=== PATIENT | female | born 1990 | race Caucasian/White ===

== ENCOUNTER 2020-02-05 22:36 | Inpatient (IN) ==
[2020-02-05 23:35] LABS: URINE SOURCE CLEAN CATCH
[2020-02-05 23:38] LABS: BILIRUBIN URINE NEGATIVE (NEGATIVE); BLOOD URINE NEGATIVE (NEGATIVE); COLOR STRAW; GLUCOSE URINE NEGATIVE (NEGATIVE); KETONE URINE NEGATIVE (NEGATIVE); LEUKOCYTES URINE NEGATIVE (NEGATIVE); NITRITE URINE NEGATIVE (NEGATIVE); PH URINE 6.5; PROTEIN URINE NEGATIVE (NEGATIVE); SP GRAVITY URINE 1.008; TURBIDITY URINE CLEAR (CLEAR); UROBILINOGEN URINE NORMAL (NORMAL)
[2020-02-05 23:39] LABS: ACETAMINOPHEN < 1.2 ug/mL (10-30); MAGNESIUM 2.2 mg/dL (1.5-2.7); SALICYLATES < 3.00 mg/dL (3-10); VALPROIC ACID < 2.80 ug/mL (50-100)
--- NOTE | 2020-02-05 23:39 | PROVIDER DOCUMENTATION ---
This chart was entered by Tamiko Arriaza Scribe, acting as scribe for Lisa Blanco MD. 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 pt sts she did it "cause I hate my life." pt has had previous suicide attempts w/OD of taking 13 seroquel 2 days ago and cutting her arm many years ago. Pt sts she vom ited most the antifreeze up. Pt requests liver enzymes be checked because she drinks alcohol frequently. pt has gone to rehab previously. Pt lives alone but has supportive family and friends. no psychiatrists, no rx, and no pcp. This episode of drinking or use began:: 1-3 hours ago Severity: reports: moderate Situational problems related to:: reports: N/A Psychiatric Complaints: reports: ingestion, suicidal ideation Associated Symptoms: reports: vomiting Similar Symptoms Previously?: Yes - Overdose Intentional drug overdose?: Yes List substance(s) ingested.: antifreeze and 1 pint of alcohol Suicide Risk Assessment: prior attempt. negative: no social supports Review of Systems - Adult - REVIEW OF SYSTEMS - ADULT Constitutional: reports: no symptoms reported. denies: fever, fatique, night sweats Eyes: reports: no symptoms reported Ears, Nose, Mouth & Throat: reports: no symptoms reported Cardiovascular: reports: no symptoms reported Respiratory: reports: no symptoms reported Gastrointestinal: reports: no symptoms reported Genitourinary: reports: no symptoms reported Musculoskeletal: reports: no symptoms reported Integumentary: reports: no symptoms reported Neurological: reports: no symptoms reported Psychiatric: reports: see HPI, suicidal thoughts, other (OD). denies: anti- depressant use, insomnia Endocrine: reports: no symptoms reported Hematologic/Lymphatic: reports: no symptoms reported Allergic/Immunologic: reports: no symptoms reported All Other Systems: Reviewed and Negative Past History - Adult - PAST MEDICAL HISTORY-ADULT Review of Records: reports: Nursing Assessment Review, Medications Reviewed, Social history reviewed & non-contributory. Major Childhood Illnesses: reports: denies history Cardiovascular: reports: denies history Respiratory: reports: denies history Gastrointestinal: reports: denies history Obstetrical/Gynecological: reports: denies history Genitourinary: reports: denies history Musculoskeletal: reports: denies history Neurological: reports: denies history Psychiatric: reports: anxiety, depression, suicide attempt Endocrine/Immune: reports: denies history Other Conditions: reports: denies history - PRIOR SURGERIES/PROCEDURES Surgical/Procedure History: reports: orthopedic (extremity) (arthroscopy), other - IMMUNIZATION STATUS Childhood Immunizations: See Nurse Assessment Flu Vaccine: See Nurse Assessment - FAMILY HISTORY Family History: reviewed, not pertinent - SOCIAL HISTORY Smoking: cigarettes, other (vapes) Provider spent 3-5 mins advising pt. on dangers of tobacco.: Discussed manners to quit use, and f/u contacts for add'l counseling. Substance Use: alcohol Alcohol Use Frequency: every day Number of drinks per typical drinking period:: 3-4 drinks Physical Exam-General - PHYSICAL EXAM-ADULT Initial Vital Signs Reviewed: Yes - CONSTITUTIONAL General Appearance: alert, no apparent distress, anxious, other (smells like alcohol). negative: lethargic, slow to respond - EYES Eyes: PERRL/EOMI - HEAD, EARS, NOSE, MOUTH & THROAT HENMT: normocephalic/atraumatic, moist mucous membranes - NECK Neck: non-tender, full range of motion, supple, normal inspection - RESPIRATORY Respiratory: chest non-tender, lungs clear, normal breath sounds - CARDIOVASCULAR Cardiovascular: normal peripheral pulses, no edema, no murmur, tachycardia. negative: regular rate, rhythm - GASTROINTESTINAL (ABDOMEN) Abdominal Exam: normal bowel sounds, non tender, soft - MUSCULOSKELETAL Back Exam: normal inspection Extremity: normal range of motion, non-tender, normal inspection, no pedal edema - SKIN Integumentary: normal color, normal turgor, warm/dry, other (large well healed incision parallel down forearm from previous self mutulation. Appears to have been deep, large laceration arppxo 15cm long) - NEUROLOGIC Neurologic: grossly normal, no motor/sensory deficits - PSYCHIATRIC Psych/Mental Status: oriented x 3, depressed affect, other (doesn't understand the severity of her actions.). negative: normal mood/affect, normal thought content, normal thought process, disoriented x 3, anxious Progress - PLAN OF CARE/RESULTS Progress/Plan/Lab Results: Vital Signs - 8 hr 02/05/20 22:55 Temperature 98.3 F Pulse Rate 107 H Respiratory Rate 19 Blood Pressure 109/72 O2 Sat by Pulse Oximetry 97 Bedside Urine ED: Urine Bedside Start: 02/05/20 23:05 Freq: ORDERED Status: Cancelled Protocol: Activity Type Activity Date Activity User E-Sign Co-Sign Detail Recorded Client Recorded Date Recorded By Edit Status 02/05/20 23:22 [id number] Active=>Cancelled [id number] 02/05/20 23:22 [id number] Laboratory Results - last 24 hr 02/05/20 02/05/20 02/05/20 22:46 22:46 22:46 WBC RBC Hgb Hct MCV MCH MCHC RDW Std Deviation Plt Count MPV Immature Gran % (Auto) Neut % (Auto) Lymph % (Auto) [place] % (Auto) Eos % (Auto) Baso % (Auto) Immature Gran # (Auto) Neut # (Auto) Lymph # (Auto) [place] # (Auto) Eos # (Auto) Baso # (Auto) Specimen Type Sample Site pH pCO2 pO2 HCO3 Base Excess Oxyhemoglobin ABG O2 Sat (Calculated) ABG O2 Saturation ABG Carboxyhemoglobin ABG Methemoglobin Sunil Test A-a O2 Difference Total Hemoglobin Lactate Blood Gas Modality FiO2 % Sodium Potassium Chloride Carbon Dioxide Anion Gap BUN Creatinine Estimated GFR/1.73 m2 BUN/Creatinine Ratio Glucose Serum Osmolality 395 H* Calculated Osmolality Calcium Magnesium 2.2 Total Bilirubin AST ALT Alkaline Phosphatase Ammonia Creatine Kinase Total Protein Albumin Globulin Albumin/Globulin Ratio Plasma Lactate 2.4 H Vitamin D 25-Hydroxy TSH Free T4 Urine Source Urine Color Urine Turbidity Urine pH Ur Specific [place] Urine Protein Ur Glucose (Stick) Ur Ketones (Stick) Urine Blood Urine Nitrite Urine Bilirubin Urobilinogen Dipstick Urine Leukocytes Urine WBC (Auto) Urine RBC (Auto) U Epithel Cells (Auto) Urine Bacteria (Auto) Urine Test Salicylates < 3.00 L Urine Opiates Screen Ur Oxycodone Screen Ur Methadone, Qual Acetaminophen < 1.2 L Ur Barbiturates Screen Valproic Acid < 2.80 L Ur Phencyclidine Scrn Ur Amphetamines Screen U Benzodiazepines Scrn [place] Urine Cocaine Screen U Cannabinoids Screen Plasma/Serum Ethyl Alc RPR 02/05/20 02/05/20 02/05/20 22:46 22:46 22:46 WBC RBC Hgb Hct MCV MCH MCHC RDW Std Deviation Plt Count MPV Immature Gran % (Auto) Neut % (Auto) Lymph % (Auto) [place] % (Auto) Eos % (Auto) Baso % (Auto) Immature Gran # (Auto) Neut # (Auto) Lymph # (Auto) [place] # (Auto) Eos # (Auto) Baso # (Auto) Specimen Type Sample Site pH pCO2 pO2 HCO3 Base Excess Oxyhemoglobin ABG O2 Sat (Calculated) ABG O2 Saturation ABG Carboxyhemoglobin ABG Methemoglobin Sunil Test A-a O2 Difference Total Hemoglobin Lactate Blood Gas Modality FiO2 % Sodium Potassium Chloride Carbon Dioxide Anion Gap BUN Creatinine Estimated GFR/1.73 m2 BUN/Creatinine Ratio Glucose Serum Osmolality Calculated Osmolality Calcium Magnesium Total Bilirubin AST ALT Alkaline Phosphatase Ammonia Creatine Kinase Total Protein Albumin Globulin Albumin/Globulin Ratio Plasma Lactate Vitamin D 25-Hydroxy 7.9 TSH 3.77 Free T4 0.93 Urine Source Urine Color Urine Turbidity Urine pH Ur Specific [place] Urine Protein Ur Glucose (Stick) Ur Ketones (Stick) Urine Blood Urine Nitrite Urine Bilirubin Urobilinogen Dipstick Urine Leukocytes Urine WBC (Auto) Urine RBC (Auto) U Epithel Cells (Auto) Urine Bacteria (Auto) Urine Test Salicylates Urine Opiates Screen Ur Oxycodone Screen Ur Methadone, Qual Acetaminophen Ur Barbiturates Screen Valproic Acid Ur Phencyclidine Scrn Ur Amphetamines Screen U Benzodiazepines Scrn [place] < 0.05 L Urine Cocaine Screen U Cannabinoids Screen Plasma/Serum Ethyl Alc RPR 02/05/20 02/05/20 02/05/20 22:46 22:46 22:46 WBC RBC Hgb Hct MCV MCH MCHC RDW Std Deviation Plt Count MPV Immature Gran % (Auto) Neut % (Auto) Lymph % (Auto) [place] % (Auto) Eos % (Auto) Baso % (Auto) Immature Gran # (Auto) Neut # (Auto) Lymph # (Auto) [place] # (Auto) Eos # (Auto) Baso # (Auto) Specimen Type Sample Site pH pCO2 pO2 HCO3 Base Excess Oxyhemoglobin ABG O2 Sat (Calculated) ABG O2 Saturation ABG Carboxyhemoglobin ABG Methemoglobin Sunil Test A-a O2 Difference Total Hemoglobin Lactate Blood Gas Modality FiO2 % Sodium 139 Potassium 4.0 Chloride 103 Carbon Dioxide 18 L Anion Gap 18 BUN 7 L Creatinine 0.7 Estimated GFR/1.73 m2 > 60 BUN/Creatinine Ratio 10 Glucose 116 H Serum Osmolality Calculated Osmolality 276 Calcium 8.9 Magnesium Total Bilirubin 0.25 AST 51 H ALT 62 H Alkaline Phosphatase 62 Ammonia 33 Creatine Kinase Total Protein 7.2 Albumin 4.3 Globulin 2.9 Albumin/Globulin Ratio 1.5 Plasma Lactate Vitamin D 25-Hydroxy TSH Free T4 Urine Source Urine Color Urine Turbidity Urine pH Ur Specific [place] Urine Protein Ur Glucose (Stick) Ur Ketones (Stick) Urine Blood Urine Nitrite Urine Bilirubin Urobilinogen Dipstick Urine Leukocytes Urine WBC (Auto) Urine RBC (Auto) U Epithel Cells (Auto) Urine Bacteria (Auto) Urine Test Salicylates Urine Opiates Screen Ur Oxycodone Screen Ur Methadone, Qual Acetaminophen Ur Barbiturates Screen Valproic Acid Ur Phencyclidine Scrn Ur Amphetamines Screen U Benzodiazepines Scrn [place] Urine Cocaine Screen U Cannabinoids Screen Plasma/Serum Ethyl Alc RPR NON-REACTIVE 02/05/20 02/05/20 02/05/20 22:46 22:46 22:46 WBC 10.86 H RBC 4.37 Hgb 13.6 Hct 41.4 MCV 94.7 MCH 31.1 H MCHC 32.9 L RDW Std Deviation 15.1 H Plt Count 250 MPV 10.6 H Immature Gran % (Auto) 0.6 H Neut % (Auto) 53.1 Lymph % (Auto) 34.1 [place] % (Auto) 7.6 Eos % (Auto) 3.0 Baso % (Auto) 1.6 H Immature Gran # (Auto) 0.06 H Neut # (Auto) 5.78 Lymph # (Auto) 3.70 H [place] # (Auto) 0.82 H Eos # (Auto) 0.33 Baso # (Auto) 0.17 Specimen Type Sample Site pH pCO2 pO2 HCO3 Base Excess Oxyhemoglobin ABG O2 Sat (Calculated) ABG O2 Saturation ABG Carboxyhemoglobin ABG Methemoglobin Sunil Test A-a O2 Difference Total Hemoglobin Lactate Blood Gas Modality FiO2 % Sodium Potassium Chloride Carbon Dioxide Anion Gap BUN Creatinine Estimated GFR/1.73 m2 BUN/Creatinine Ratio Glucose Serum Osmolality Calculated Osmolality Calcium Magnesium Total Bilirubin AST ALT Alkaline Phosphatase Ammonia Creatine Kinase 129 Total Protein Albumin Globulin Albumin/Globulin Ratio Plasma Lactate Vitamin D 25-Hydroxy TSH Free T4 Urine Source Urine Color Urine Turbidity Urine pH Ur Specific [place] Urine Protein Ur Glucose (Stick) Ur Ketones (Stick) Urine Blood Urine Nitrite Urine Bilirubin Urobilinogen Dipstick Urine Leukocytes Urine WBC (Auto) Urine RBC (Auto) U Epithel Cells (Auto) Urine Bacteria (Auto) Urine Test Salicylates Urine Opiates Screen Ur Oxycodone Screen Ur Methadone, Qual Acetaminophen Ur Barbiturates Screen Valproic Acid Ur Phencyclidine Scrn Ur Amphetamines Screen U Benzodiazepines Scrn [place] Urine Cocaine Screen U Cannabinoids Screen Plasma/Serum Ethyl Alc 247 H RPR 02/05/20 02/05/20 02/05/20 23:27 23:27 23:27 WBC RBC Hgb Hct MCV MCH MCHC RDW Std Deviation Plt Count MPV Immature Gran % (Auto) Neut % (Auto) Lymph % (Auto) [place] % (Auto) Eos % (Auto) Baso % (Auto) Immature Gran # (Auto) Neut # (Auto) Lymph # (Auto) [place] # (Auto) Eos # (Auto) Baso # (Auto) Specimen Type Sample Site pH pCO2 pO2 HCO3 Base Excess Oxyhemoglobin ABG O2 Sat (Calculated) ABG O2 Saturation ABG Carboxyhemoglobin ABG Methemoglobin Sunil Test A-a O2 Difference Total Hemoglobin Lactate Blood Gas Modality FiO2 % Sodium Potassium Chloride Carbon Dioxide Anion Gap BUN Creatinine Estimated GFR/1.73 m2 BUN/Creatinine Ratio Glucose Serum Osmolality Calculated Osmolality Calcium Magnesium Total Bilirubin AST ALT Alkaline Phosphatase Ammonia Creatine Kinase Total Protein Albumin Globulin Albumin/Globulin Ratio Plasma Lactate Vitamin D 25-Hydroxy TSH Free T4 Urine Source CLEAN CATCH Urine Color STRAW Urine Turbidity CLEAR Urine pH 6.5 Ur Specific [place] 1.008 Urine Protein NEGATIVE Ur Glucose (Stick) NEGATIVE Ur Ketones (Stick) NEGATIVE Urine Blood NEGATIVE Urine Nitrite NEGATIVE Urine Bilirubin NEGATIVE Urobilinogen Dipstick NORMAL Urine Leukocytes NEGATIVE Urine WBC (Auto) <10 Urine RBC (Auto) <10 U Epithel Cells (Auto) <10 Urine Bacteria (Auto) NEGATIVE Urine Test NEGATIVE Salicylates Urine Opiates Screen NONE DETECTED Ur Oxycodone Screen NONE DETECTED Ur Methadone, Qual NONE DETECTED Acetaminophen Ur Barbiturates Screen NONE DETECTED Valproic Acid Ur Phencyclidine Scrn NONE DETECTED Ur Amphetamines Screen NONE DETECTED U Benzodiazepines Scrn NONE DETECTED [place] Urine Cocaine Screen NONE DETECTED U Cannabinoids Screen NONE DETECTED Plasma/Serum Ethyl Alc RPR 02/05/20 23:35 WBC RBC Hgb Hct MCV MCH MCHC RDW Std Deviation Plt Count MPV Immature Gran % (Auto) Neut % (Auto) Lymph % (Auto) [place] % (Auto) Eos % (Auto) Baso % (Auto) Immature Gran # (Auto) Neut # (Auto) Lymph # (Auto) [place] # (Auto) Eos # (Auto) Baso # (Auto) Specimen Type ARTERIAL Sample Site R RADIAL pH 7.38 pCO2 34 L pO2 75 HCO3 21.6 Base Excess -4.2 L Oxyhemoglobin 94.1 L ABG O2 Sat (Calculated) 17.9 ABG O2 Saturation 97.6 ABG Carboxyhemoglobin 2.90 H ABG Methemoglobin 0.8 Sunil Test YES A-a O2 Difference 32.0 Total Hemoglobin 13.5 Lactate 2.50 H Blood Gas Modality ROOM AIR FiO2 % 21.0 Sodium Potassium Chloride Carbon Dioxide Anion Gap BUN Creatinine Estimated GFR/1.73 m2 BUN/Creatinine Ratio Glucose Serum Osmolality Calculated Osmolality Calcium Magnesium Total Bilirubin AST ALT Alkaline Phosphatase Ammonia Creatine Kinase Total Protein Albumin Globulin Albumin/Globulin Ratio Plasma Lactate Vitamin D 25-Hydroxy TSH Free T4 Urine Source Urine Color Urine Turbidity Urine pH Ur Specific [place] Urine Protein Ur Glucose (Stick) Ur Ketones (Stick) Urine Blood Urine Nitrite Urine Bilirubin Urobilinogen Dipstick Urine Leukocytes Urine WBC (Auto) Urine RBC (Auto) U Epithel Cells (Auto) Urine Bacteria (Auto) Urine Test Salicylates Urine Opiates Screen Ur Oxycodone Screen Ur Methadone, Qual Acetaminophen Ur Barbiturates Screen Valproic Acid Ur Phencyclidine Scrn Ur Amphetamines Screen U Benzodiazepines Scrn [place] Urine Cocaine Screen U Cannabinoids Screen Plasma/Serum Ethyl Alc RPR Orders Category Date Time Status CHEST-PORTABLE [RAD] Stat Exams 02/05/20 23:08 Taken ABG [RESP] Routine Lab 02/05/20 23:35 Completed ACETAMINOPHEN [TDM] Stat Lab 02/05/20 22:46 Completed ALCOHOL BLOOD Stat Lab 02/06/20 00:27 Completed AMMONIA [CHEM] Stat Lab 02/05/20 22:46 Completed CARBAMAZEPINE [HH] Stat Lab 02/05/20 22:46 Received CBC WITH ELECTRONIC DIFF [HEME] Stat Lab 02/06/20 00:24 Completed CK TOTAL [CHEM] Stat Lab 02/06/20 00:28 Completed CMP [COMPREHENSIVE METABOLIC PANEL] [CHEM] Stat Lab 02/06/20 00:24 Completed ETHYLENE GLYCOL [PLUMMER] Stat Lab 02/05/20 22:46 Received FREE T4 Stat Lab 02/05/20 22:46 Completed LACTATE, PLASMA [CHEM] Stat Lab 02/05/20 22:46 Completed LITHIUM [TDM] Stat Lab 02/05/20 22:46 Completed MAGNESIUM [CHEM] Stat Lab 02/05/20 22:46 Completed TEST-URINE [PREG] Stat Lab 02/05/20 23:27 Completed RPR [SERO] Stat Lab 02/05/20 22:46 Completed SALICYLATES [TDM] Stat Lab 02/05/20 22:46 Completed SERUM OSMOLALITY [CHEM] Stat Lab 02/05/20 22:46 Completed TSH Stat Lab 02/05/20 22:46 Completed UA [URINALYSIS W/POSS RFLX CULT] [URINALYSIS] Stat Lab 02/05/20 23:27 Completed URINE DRUG SCREEN Stat Lab 02/05/20 23:27 Completed VALPROIC ACID [TDM] Stat Lab 02/05/20 22:46 Completed VITAMIN D 25 HYDROXY Stat Lab 02/05/20 22:46 Completed Antizol 10 mg/kg Q12h X4 Doses Med 02/06/20 01:45 Ordered Fomepizole [Antizol] 0 gm 0.9% Sodium Chloride Inj [Ns] 100 ml IV Q12H Antizol 15 mg/kg Loading Dose Med 02/06/20 01:40 Ordered Fomepizole [Antizol] 0 gm 0.9% Sodium Chloride Inj [Ns] 100 ml IV ONCE Haloperidol Lactate [Haldol] Med 02/06/20 00:25 Discontinued 5 mg IV NOW ONE Lorazepam [Ativan] Med 02/06/20 00:25 Discontinued 2 mg IV NOW ONE Adult Medical Clearance Stat Psychiatry 02/05/20 23:12 Ordered EKG [EKG] Stat Ther 02/05/20 23:07 Draft Per my calculations patient does not meet criteria at this time for fomepizole, however I spoke to Dr Moreau, power transmission engineer for hospitalist who would like it dosed given that she continues to change her story and is not reliable. Orders placed per his recommendations. Patient sleeping on reexam after meds. Patient accepted for admission. Further orders to be placed by hospitalist team Result Diagrams: 02/05/20 22:46 02/05/20 22:46 - REASSESSMENT Reassessment #1 Time Reassessed: 00:15 Status: worsening (Patient angry demanding to go home. She does not understand the magnitude of what she did. She then tells me she only had 2 small shots.Became rowdy and started cussing. Called [facility] and discussed with Dr Greer who agreed with 2 physician hold.) - EKG 1 Time of EKG reading by physician:: 22:55 EKG Read and Signed by:: Lisa Blanco EKG Interpretation (*Must complete 3 of following elements*): Abnormal Rate: 109 Rhythm: Sinus tachycardia Evans: normal QRS: normal MI Interval: normal ST Wave: normal - CONSULTS/PCP/HOSPITALIST Notification #1 *Consult/PCP/Hospitalist*: Dr Moreau Time Discussed: 01:42 Consult Disposition: Admit (Wants fomepizole ordered given that she is poor historian changing her story) Departure - Departure Date of Disposition Decision: 02/06/20 Time of Disposition Decision: 01:22 DIAGNOSIS: Ingestion of toxic substance, Alcohol intoxication, Suicidal ideations Disposition: ADMITTED INPATIENT 09 Certified Medical Emergency: Emergent Condition: Serious Referrals and Follow-Ups: Guillermo Coleman MD [Primary Care Provider] - - Critical Care Note This patient required my direct & personal management of CC.: Yes Total Time (mins): 75 Critical Care Statement: This patient required my direct personal management to treat or rule out processes, the absence of which, could potentiallly result in sudden, clinically significant life or limb threatening deterioration. Attestation - Physician/ JAMES Attestation Patient care was provided by Advanced Practice Provider:: No The physician spent face to face time with patient:: Yes Advanced Practice Provider documentation review:: Supervising physician onsite and consulted in the evaluation and care of this patient. The physician did have a face to face encounter with the patient. This chart was documented by the indicated scribe, (Tamiko Arriaza Scribe) and accurately reflects the services I performed and decisions made by , Lisa Blanco MD, as attested by the provider's signature.
[2020-02-05 23:47] LABS: ALLEN TEST YES; BE -4.2 mmoll (-3.0-3.0); BLOOD TYPE ARTERIAL; HCO3-(ACT) 21.6 mmoll (20.0-26.0); METHB 0.8 % (0.0-1.5); MODALITY ROOM AIR; O2(CT) 17.9 mL/dL (15.0-23.0); O2HB 94.1 % (95.0-99.0); PCO2(98.6) 34 mmHg (35-45); PO2(98.6) 75 mmHg (60-100); SAMPLE BLOOD; SAO2 97.6 % (95.0-100.0); THB 13.5 g/dL (11.5-17.4); pH(98.6) 7.38 (7.35-7.45)
[2020-02-05 23:51] LABS: UR AMPHETAMINES QUAL NONE DETECTED (NONE DETECT); UR BARBITUATES QUAL NONE DETECTED (NONE DETECT); UR BENZODIAZEPIN QUAL NONE DETECTED (NONE DETECT); UR CANNABINOIDS QUAL NONE DETECTED (NONE DETECT); UR COCAINE QUAL NONE DETECTED (NONE DETECT); UR METHADONE QUAL NONE DETECTED (NONE DETECT); UR OPIATES QUAL NONE DETECTED (NONE DETECT); UR OXYCODONE QUAL NONE DETECTED (NONE DETECT); UR PCP QUAL NONE DETECTED (NONE DETECT)
--- NOTE | 2020-02-05 23:54 | EKG Report ---
Test Performed on : 02/05/2020 10:52:11 PM Test Reason : SI Blood Pressure : / mmHG Vent. Rate : 109 BPM Atrial Rate : 109 BPM P-R Int : 122 ms QRS Dur : 072 ms QT Int : 338 ms P-R-T Axes : 046 041 033 degrees QTc Int : 455 ms Sinus tachycardia. Otherwise normal ECG When compared with ECG of 27-JAN-2020 10:59, (Unconfirmed) No significant change was found Unconfirmed Result
[2020-02-05 23:56] LABS: UR EPITHELIAL CELLS <10 /HPF (<10); URINE BACTERIA NEGATIVE /HPF; URINE RBC <10 /HPF (<10); URINE WBC <10 /HPF (<10)
[2020-02-06 00:09] LABS: FREE T4 0.93 ng/dL (0.93-1.70); TSH 3.77 uIUmL (0.27-4.20)
[2020-02-06] MEDS ORDERED: ATIVAN IV ONE (00:25)
[2020-02-06] MEDS ORDERED: HALDOL IV ONE (00:25)
[2020-02-06 00:47] LABS: BASO# 0.17 X1000 (0.0-0.2); BASO% 1.6 % (0.0-0.8); EOS# 0.33 X1000 (0.0-0.7); HEMATOCRIT 41.4 % (37.0-47.0); HEMOGLOBIN 13.6 g/dL (12.0-16.0); IMM GRAN# 0.06 X1000 (0.0-0.04); IMM GRAN% 0.6 % (0.0-0.5); LYMPH% 34.1 % (20.5-51.1); MCH 31.1 PG (27-31); MCHC 32.9 g/dL (33-37); MCV 94.7 FL (81-99); MONO# 0.82 X1000 (0.11-0.59); MONO% 7.6 % (1.7-9.3); MPV 10.6 FL (7.4-10.4); NEUT# 5.78 X1000 (1.4-6.5); NEUT% 53.1 % (42.2-75.2); PLT 250 X1000 (130-400); RBC 4.37 XMIL (4.2-5.4); RDW 15.1 % (11.5-14.5); WBC 10.86 X1000 (4.8-10.8)
[2020-02-06 00:59] LABS: AGAP 18; ALB/GLOB RATIO 1.5; ALBUMIN 4.3 g/dL (3.5-5.0); ALKALINE PHOSPHATASE 62 U/L (32-104); BUN 7 mg/dL (8-22); CALCIUM 8.9 mg/dL (8.8-10.2); CHLORIDE 103 mmol/L (98-107); COSMO 276; CREATININE 0.7 mg/dL (0.5-0.9); ESTIMATED GFR > 60; GLUCOSE 116 mg/dL (70-104); GOT 51 U/L (10-30); GPT 62 U/L (10-36); SODIUM 139 mmol/L (136-145); TCO2 18 mmol/L (25-35); TOTAL BILIRUBIN 0.25 mg/dL (0.20-1.00); TOTAL PROTEIN 7.2 g/dL (6.3-8.3)
[2020-02-06] MEDS ORDERED: ANTIZOL IV ONE (01:40)
[2020-02-06] MEDS ORDERED: NS IV ONE (01:40)
[2020-02-06] MEDS ORDERED: ANTIZOL IV SCH (01:45)
[2020-02-06] MEDS ORDERED: NS IV SCH (01:45)
[2020-02-06] MEDS ORDERED: M.V.I.-12 10 ML, FOLIC ACID 1 MG, MAGNESIUM SULFATE 1 GM, THIAMINE 100 MG in NS 1,000 ML IV ONE (02:11)
--- NOTE | 2020-02-06 02:50 | HISTORY AND PHYSICAL ---
REASON FOR ADMISSION: Suicide attempt. HISTORY OF PRESENT ILLNESS: Ms Theresa Barahona is a 29-year-old lady with past medical history of prior suicide attempts. She told the ER staff she took 1300 mg Seroquel tablets and has had prior extensive cutting of her arms in the past and hands. She came in at the behest of her family and was noted to have taken 1 pint of alcohol, which she says she drinks on a regular basis, but in addition to that half a gallon of antifreeze about 6 or 7 hours ago. She initially told the ER staff she did it because she hates her life, but now tells me that she took it to get high. This patient is unreliable and even gave varying amount of Antabuse ingestion from a few cups to a full gallon. Patient has started to backtrack on her story because she wants to go home. Denies any audio or visual hallucinations. Denies any nausea, vomiting, or any systemic symptoms. No urinary problems. No cardiorespiratory complaints. No visual problems. REVIEW OF SYSTEMS: Twelve system review was done. ALLERGIES: No allergies. MEDICATIONS: Seroquel 100 mg daily. FAMILY HISTORY: Notable for diabetes in her Dad. SURGICAL HISTORY: She has had knee surgery. SOCIAL HISTORY: She drinks about a pint of alcohol frequently, not daily. She smokes about less than a pack of cigarettes a day. Denies any illicit drug use. Lives alone. LABORATORY WORK: White count 11,000, hemoglobin and hematocrit 13 and 41, platelet count 250,000, with normal differential. Bicarb is 89, gap 18, BUN 7, creatinine 0.7, glucose 116. Serum osmolarity 395, calculated is 276. UDS negative salicylates, acetaminophen, valproic acid, lithium. Plasma alcohol level was 247. Urinalysis, no oxalate crystals noted, specific gravity is 1.008. Blood gas pH 7.38, pCO2 is 34, PO2 is 75 on room air. Chest film essentially normal but rotated film. EKG sinus tachycardia with no overt ST, T wave changes. QT interval corrected 455. PHYSICAL EXAMINATION: GENERAL: Young, obese female laying in bed, slightly drowsy from the effects of Haldol and Ativan given an hour ago. She is easy arousable, but oriented to person, place, and time. Normal mood and affect. HEENT: Head is normocephalic, atraumatic. Eyes are dilated but still reactive. No nystagmus. EOMI. Anicteric not pale. ENT: Grossly normal. Some cyanosis. NECK: Supple. No JVD noted. CHEST: Clear when auscultated. CARDIOVASCULAR: First and second heart sounds heard. No gallops, rubs. Regular. ABDOMEN: Slightly protuberant, soft. No focal areas of tenderness. Bowel sounds are hypoactive. RECTAL: Deferred at this time. EXTREMITIES: Good distal pulse volumes, regular, symmetrical. NEUROLOGICAL: No tremors or asterixis. No focal deficits. SKIN: Intact. No breakdown, lesions. NEUROMUSCULAR: Grossly normal. ASSESSMENT: 1. Insulin glycol poisoning. 2. Suicide attempt. 3. Mild transaminases. 4. Alcohol abuse. 5. Anion gap metabolic acidosis. PLAN: Patient will be hydrated primarily with bicarb to block acidic form of ethylene glycol from penetrating into the tissue. The patient was started with fomepizole preemptively. Because the patient's drinking history the patient was also given a banana bag. Will have p.r.n. Ativan on standby. Once the patient's lab work is normal and repeated serum osmolarity is improving without any neurological compromise, the patient can hopefully be transferred to [facility] within the next 24 to 48 hours. I ordered a 2 p.m. BMP to ensure patient does not become hypokalemic from the bicarb drip. Please follow. cc: Suma Moreau MD
[2020-02-06] MEDS ORDERED: ZOFRAN IV PRN (03:57)
[2020-02-06] MEDS ORDERED: NS 1,000 ML IV ONE (03:57)
[2020-02-06] MEDS ORDERED: ATIVAN IV PRN (03:57)
[2020-02-06] MEDS: SODIUM BICARBONATE 8.4% 150 MEQ in D5W 1,000 ML IV SCH ×2 (04:28→11:36)
[2020-02-06] MEDS: LOVENOX SUBQ SCH (04:30)
--- NOTE | 2020-02-06 06:26 | Diag Imaging Result Doc PS360 ---
EXAM: CHEST-PORTABLE 02/05/2020 HISTORY: SI TECHNIQUE: AP portable at 1204 COMMENT: There is no evidence of acute cardiac or pulmonary disease. Compared to 01/27/2020 there has been no significant change. IMPRESSION: No acute disease. Electronically signed by Roshan Girard 02/06/2020 6:24 AM
[2020-02-06 07:28] LABS: AGAP 10; ALB/GLOB RATIO 1.5; ALBUMIN 3.5 g/dL (3.5-5.0); ALKALINE PHOSPHATASE 57 U/L (32-104); BUN 6 mg/dL (8-22); CALCIUM 7.5 mg/dL (8.8-10.2); CHLORIDE 105 mmol/L (98-107); COSMO 277; CREATININE 0.6 mg/dL (0.5-0.9); ESTIMATED GFR > 60; GLUCOSE 97 mg/dL (70-104); GOT 41 U/L (10-30); GPT 53 U/L (10-36); MAGNESIUM 2.3 mg/dL (1.5-2.7); SODIUM 140 mmol/L (136-145); TCO2 25 mmol/L (25-35); TOTAL BILIRUBIN 0.28 mg/dL (0.20-1.00); TOTAL PROTEIN 5.9 g/dL (6.3-8.3)
[2020-02-06] MEDS: THIAMINE 100 MG in NS 50 ML IV SCH (08:32)
[2020-02-06] MEDS ORDERED: THIAMINE 100 MG in NS 50 ML IV SCH (09:00)
[2020-02-06] MEDS ORDERED: CALCIUM GLUCONATE 4.65 MEQ in NS 50 ML IV ONE ×2 (13:00→13:08)
[2020-02-06] MEDS ORDERED: SODIUM CHLORIDE 0.9% INJ SCH (13:15)
[2020-02-06 13:32] LABS: URINE SOURCE CLEAN CATCH
[2020-02-06 13:35] LABS: BILIRUBIN URINE NEGATIVE (NEGATIVE); BLOOD URINE NEGATIVE (NEGATIVE); COLOR STRAW; GLUCOSE URINE NEGATIVE (NEGATIVE); KETONE URINE NEGATIVE (NEGATIVE); LEUKOCYTES URINE NEGATIVE (NEGATIVE); NITRITE URINE NEGATIVE (NEGATIVE); PROTEIN URINE NEGATIVE (NEGATIVE); SP GRAVITY URINE 1.013; TURBIDITY URINE CLEAR (CLEAR); UROBILINOGEN URINE NORMAL (NORMAL)
[2020-02-06 13:36] LABS: UR EPITHELIAL CELLS <10 /HPF (<10); URINE BACTERIA NEGATIVE /HPF; URINE RBC <10 /HPF (<10); URINE WBC <10 /HPF (<10)
[2020-02-06] MEDS: PROTONIX IV SCH (13:45)
--- NOTE | 2020-02-06 13:47 | PROGRESS NOTE ---
DATE: 02/06/2020 SUBJECTIVE: She has no complaints. She feels fine. OBJECTIVE: Vital Signs: Blood pressure is 112/71, heart rate of 96, respiratory rate of 13, temperature 97.8 degrees, 96% on room air. Cardiovascular: Regular rate and rhythm. Pulmonary: Bilateral breath sounds, clear to auscultation. Gastrointestinal: Abdomen soft, nontender, nondistended. Bowel sounds are positive. LABORATORY DATA: White count: I do not have any new data. Today, though, her calcium is 7.5. Her AST and ALT are 41 and 53. That is not a big change from previous. ASSESSMENT/PLAN: 1. Ethylene glycol poisoning, which is putative, really, she says she only took a couple swigs. She denies any Seroquel overdose. She seems completely awake and alert. Per Poison Control, she needs for doses of fomepizole until we can get the ethylene glycol level back. She is on a bicarbonate drip. We will need to monitor her calcium. Check for calcium oxalate crystals, so we will continue treatment. Her last calcium was a bit low 7.5, so we will supplement that. There is a urine obtained but there was no urine crystals noted. She still has alcohol in her system. 2. Suicidal ideation with depression. We will deal with inpatient psych when she is stabilized. We cannot do anything about that right now. DISPOSITION: Pending clinical status. Aware of diagnosis. cc: Job Armstrong MD
[2020-02-06] MEDS: NS IV SCH (16:45)
[2020-02-06] MEDS: ANTIZOL IV SCH (16:45)
[2020-02-06 19:38] LABS: AGAP 14; BUN 6 mg/dL (8-22); CALCIUM 8.3 mg/dL (8.8-10.2); CHLORIDE 100 mmol/L (98-107); COSMO 276; CREATININE 0.8 mg/dL (0.5-0.9); ESTIMATED GFR > 60; GLUCOSE 114 mg/dL (70-104); POTASSIUM 4.1 mmol/L (3.5-5.1); SODIUM 139 mmol/L (136-145); TCO2 25 mmol/L (25-35)
[2020-02-07 01:32] LABS: AGAP 11; BUN 5 mg/dL (8-22); CALCIUM 8.2 mg/dL (8.8-10.2); CHLORIDE 101 mmol/L (98-107); COSMO 267; CREATININE 0.7 mg/dL (0.5-0.9); ESTIMATED GFR > 60; GLUCOSE 89 mg/dL (70-104); POTASSIUM 3.6 mmol/L (3.5-5.1); SODIUM 135 mmol/L (136-145); TCO2 23 mmol/L (25-35)
[2020-02-07] MEDS: LOVENOX SUBQ SCH (03:43)
[2020-02-07] MEDS: NS IV SCH ×2 (03:43→14:55)
[2020-02-07] MEDS: ANTIZOL IV SCH ×2 (03:43→14:55)
[2020-02-07 07:48] LABS: BASO# 0.05 X1000 (0.0-0.2); BASO% 0.6 % (0.0-0.8); EOS% 3.6 % (0.0-10.0); HEMATOCRIT 39.9 % (37.0-47.0); HEMOGLOBIN 12.6 g/dL (12.0-16.0); IMM GRAN# 0.06 X1000 (0.0-0.04); IMM GRAN% 0.7 % (0.0-0.5); LYMPH% 32.4 % (20.5-51.1); MCH 30.1 PG (27-31); MCHC 31.6 g/dL (33-37); MCV 95.5 FL (81-99); MONO# 0.52 X1000 (0.11-0.59); MONO% 6.2 % (1.7-9.3); MPV 9.8 FL (7.4-10.4); NEUT# 4.71 X1000 (1.4-6.5); NEUT% 56.5 % (42.2-75.2); PLT 208 X1000 (130-400); RBC 4.18 XMIL (4.2-5.4); RDW 15.2 % (11.5-14.5); WBC 8.34 X1000 (4.8-10.8)
[2020-02-07 08:13] LABS: ALB/GLOB RATIO 1.7; ALBUMIN 3.9 g/dL (3.5-5.0); DIRECT BILIRUBIN 0.2 mg/dL (0.00-0.20); TOTAL BILIRUBIN 0.63 mg/dL (0.20-1.00); TOTAL PROTEIN 6.2 g/dL (6.3-8.3)
[2020-02-07 08:21] LABS: AGAP 12; BUN 4 mg/dL (8-22); CALCIUM 8.6 mg/dL (8.8-10.2); CHLORIDE 99 mmol/L (98-107); COSMO 263; CREATININE 0.7 mg/dL (0.5-0.9); ESTIMATED GFR > 60; GLUCOSE 92 mg/dL (70-104); POTASSIUM 3.7 mmol/L (3.5-5.1); SODIUM 133 mmol/L (136-145); TCO2 22 mmol/L (25-35)
[2020-02-07] MEDS: THIAMINE 100 MG in NS 50 ML IV SCH (08:58)
[2020-02-07] MEDS: PROTONIX IV SCH (14:55)
--- NOTE | 2020-02-07 16:39 | PROGRESS NOTE ---
DATE: 02/07/2020 SUBJECTIVE: The patient has no major complaints. OBJECTIVE: Blood pressure 130/96, heart rate 89, respiratory rate 17, temperature 98.1 degrees, and 100% on room air.Cardiovascular: Regular rate and rhythm. Pulmonary: Bilateral breath sounds. Clear to auscultation. GI: Soft, nontender, and nondistended. Bowel sounds are positive. LABORATORY DATA: White count 8, hemoglobin and hematocrit 12 and 39, and platelets 208,000. Sodium 133, gap 12, bicarb 22. AST and ALT of 52 and 64. PROBLEM LIST: Ethylene glycol poisoning possible Seroquel overdose, although she denies this. She does admit to drinking ethylene glycol, but she says only a couple swigs. With that being said, toxicology are recommending monitoring her until ethylene glycol level returns or for 85 hours of omeprazole treatment. She is on bicarbonate. She has received 4 doses of fomepizole. We will continue that until we get the ethylene glycol level which will hopefully be soon. Her bicarbonate drip for some reason has run off, but we will continue treatment and follow. DISPOSITION: 1. Pending her clinical status. 2. Suicidal ideation, depression. We will continue. She will need psychiatric evaluation when she is medically stable. That is not now unfortunately, so we will continue to follow. 3. We will see how things go. cc: Job Armstrong MD
[2020-02-07] MEDS: SODIUM BICARBONATE 8.4% 150 MEQ in D5W 1,000 ML IV SCH (17:05)
[2020-02-07 17:17] LABS: AGAP 13; ALB/GLOB RATIO 1.1; ALBUMIN 3.9 g/dL (3.5-5.0); ALKALINE PHOSPHATASE 68 U/L (32-104); BUN 7 mg/dL (8-22); CALCIUM 9.1 mg/dL (8.8-10.2); CHLORIDE 100 mmol/L (98-107); COSMO 264; CREATININE 0.8 mg/dL (0.5-0.9); ESTIMATED GFR > 60; GLUCOSE 96 mg/dL (70-104); GOT 72 U/L (10-30); GPT 82 U/L (10-36); POTASSIUM 4.5 mmol/L (3.5-5.1); SODIUM 133 mmol/L (136-145); TCO2 20 mmol/L (25-35); TOTAL BILIRUBIN 0.56 mg/dL (0.20-1.00); TOTAL PROTEIN 7.4 g/dL (6.3-8.3)
[2020-02-08] MEDS: NS IV SCH ×2 (03:02→14:40)
[2020-02-08] MEDS: ANTIZOL IV SCH ×2 (03:02→14:40)
[2020-02-08] MEDS: LOVENOX SUBQ SCH (03:02)
[2020-02-08] MEDS: SODIUM BICARBONATE 8.4% 150 MEQ in D5W 1,000 ML IV SCH ×2 (07:37→14:39)
[2020-02-08 07:41] LABS: HEMATOCRIT 40.3 % (37.0-47.0); HEMOGLOBIN 13.1 g/dL (12.0-16.0); MCHC 32.5 g/dL (33-37); MCV 95.5 FL (81-99); MPV 10.1 FL (7.4-10.4); RBC 4.22 XMIL (4.2-5.4); RDW 14.9 % (11.5-14.5); WBC 9.06 X1000 (4.8-10.8)
[2020-02-08 08:03] LABS: AGAP 12; ALBUMIN 3.6 g/dL (3.5-5.0); ALKALINE PHOSPHATASE 62 U/L (32-104); BUN 6 mg/dL (8-22); CALCIUM 8.4 mg/dL (8.8-10.2); CHLORIDE 100 mmol/L (98-107); COSMO 271; CREATININE 0.8 mg/dL (0.5-0.9); ESTIMATED GFR > 60; GLUCOSE 97 mg/dL (70-104); GOT 74 U/L (10-30); GPT 82 U/L (10-36); POTASSIUM 3.9 mmol/L (3.5-5.1); SODIUM 137 mmol/L (136-145); TCO2 25 mmol/L (25-35); TOTAL BILIRUBIN 0.61 mg/dL (0.20-1.00); TOTAL PROTEIN 7.1 g/dL (6.3-8.3)
[2020-02-08] MEDS: THIAMINE 100 MG in NS 50 ML IV SCH (09:34)
[2020-02-08 09:59] LABS: HEPATITIS PROFILE ACUTE SEE COMMENTS
[2020-02-08] MEDS: PROTONIX IV SCH (12:27)
[2020-02-08] MEDS ORDERED: ATIVAN IV PRN (12:49)
[2020-02-08] MEDS ORDERED: PYRIDOXINE IV ONE ×2 (13:02→14:00)
[2020-02-08] MEDS ORDERED: FOLIC ACID 50 MG in NS 50 ML IV ONE (14:00)
[2020-02-08] MEDS ORDERED: NS IV ONE (14:00)
[2020-02-08] MEDS: FOLIC ACID PO SCH ×3 (14:40→21:59)
--- NOTE | 2020-02-08 18:44 | PROGRESS NOTE ---
DATE: 02/08/2020 INTERVAL HISTORY: No acute events overnight. Miss Barahona did not have any new complaints. Her tachycardia is improving. Her insulin glycol levels came back elevated to 225. Her alcohol level has been undetectable. SUBJECTIVE: Miss Barahona is feeling great. Denies any chest pain, shortness of breath, nausea, or vomiting. She states she was able to eat her meal 100%. REVIEW OF SYSTEMS: Negative for headache. Negative for blurring of vision except that she does not have any glasses. Negative for chest pain or shortness of breath. Negative for nausea, vomiting, or abdominal pain. Negative for cough. Negative for hematuria, dysuria, or burning in the pain. Negative for diarrhea or constipation. PHYSICAL EXAMINATION: heent: Oral cavity is moist. pulmonary: Air entry bilaterally equal. No wheeze, rhonchi, or crackles. Cardiovascular: S1, S2 normal. No murmur or gallop. Abdomen: Soft, nontender. Extremities: No lower extremity edema. Neurologic: She is alert and oriented x3. Her speech is fluent. Her mood appears appropriately pleasant. She denies any suicidal or homicidal ideation. She does not demonstrate any delusion. She denies any hallucinations. She states that she was away from her grandparents and that is why she gave away and took antifreeze to harm herself. However, she has not had any such thoughts since her presentation to the emergency room on February 04. LABORATORIES: Suggestive of WBC 9000, hemoglobin 13.1, platelet 205,000. Potassium 3.9, BUN 6, creatinine 0.8. Microbiology: No positive data. IMAGING: No new imaging. ASSESSMENT AND PLAN: 1. Ethylene glycol poisoning with high osmolar gap without acidosis. Followup repeat level of ethylene glycol. Continue intravenous bicarbonate containing IV fluids and intravenous fomepizole. Add intravenous pyridoxine, and continue folic acid and thiamine. Repeat ethylene glycol levels have been ordered. 2. Intentional anti-psychotic overdose: Her admission EKG did not have QT interval prolongation. She has been off her Quetiapine since admission. 2. Suicide attempt. The patient reports to be taking Seroquel at home for mood disorder and according to records has had suicide attempts in the past. Currently she does not have any suicidal ideation for more than 48 hours. I will continue one-to-one suicide precautions for now as I await [facility] consultation. DISPOSITION: The patient is adamant about going home. I discussed with her about multiple medical conditions, including high ethylene glycol levels, need for intravenous fomepizole and intravenous vitamins, and I also told her about pending ethylene glycol levels. She requests me to have [facility] consultation which is currently pending. Meanwhile, I called Poison Control for their recommendation regarding her management and, based on my discussion, it seems she may have to wait for repeat ethylene glycol levels considering it was significantly elevated on presentation and we may have to continue intravenous fomepizole. She appears to be medically stable at the moment. However, it is not medically advisable for her to get discharged. She does not have any suicidal or homicidal ideation, so psychiatric illness is currently within reasonable control. I counseled her about calling emergency room whenever she has suicidal ideation and seek help. She understood it. ADDENDUM: I talked with my fellow physician and discussed with him about patient's clinical condition. I was worried that patient might go home against medical advice. I was still waiting [facility] evaluation. After discussion with my colleague, we decided to put a 2 physician hold on her for her safety until we get formal daphne angel recommendations. cc: MD BRITNEY York
--- NOTE | 2020-02-08 19:01 | PROGRESS NOTE ---
DATE: 02/08/2020 SUBJECTIVE: Ms. Barahona is a 29-year-old female who was admitted to the hospital for suicidal attempt. Apparently she had ingested ethylene glycol. She has been admitted to the hospital for the last 3 days. The patient is still suicidal. Since admission, we were in contact with Poison Control and there is a recommendation to check the ethylene glycol levels again, that we did today. Dr. Madrigal is the attending physician. PLAN: Apparently this patient wants to leave the hospital against medical advice. I am agreeing with Dr. Madrigal, holding this patient in the hospital because she needs to stay to clear medically, because she is still actively suicidal. We need to keep her in the hospital, so I agree on holding this patient in the hospital. Dr. Madrigal and I will hold this patient until she is medically stable. cc: Elpidio Stephens MD MTDD
--- NOTE | 2020-02-08 20:11 | PROGRESS NOTE ---
DATE: 02/08/2020 INTERVAL HISTORY: Ms. Barahona's tachycardia has resolved. Her anion gap has also become normal. SUBJECTIVE: She is alert and oriented. Denies any chest pain or shortness of breath. OBJECTIVE: Vital signs: Temperature 98.2 degrees, pulse 88, respiratory rate 18, blood pressure 140/96, saturating 98% room air. On physical examination, not in acute distress. Oral cavity is moist. Air entry bilaterally equal. No wheeze, rhonchi or crackles. S1, S2 normal. No murmur or gallop. Abdomen is soft, nontender. No lower extremity edema. She is alert and oriented x3. She denies any suicidal or homicidal ideation. LABORATORY DATA: Hemoglobin 13.1, platelets 205,000. BUN 6, creatinine 0.8. Her ethylene glycol level was significantly elevated to more than 220 mg/dL. ASSESSMENT AND PLAN: 1. Ethylene glycol poisoning by intentional ingestion. Considering she had significantly elevated ethylene glycol level, I will continue her on repeat intravenous fomepizole dose every 12 hours. I will decrease intravenous bicarbonate drip rate. I will continue her on thiamine. I will give her intravenous pyridoxine and intravenous folic acid. Her first dose of fomepizole was on 02/06/2020 around 2 a.m., and she needs to stay in the hospital for at least 85 hours to complete 5 half-lives of fomepizole or until ethylene glycol level goes down. 2. Disposition: The patient was adamant about going home; however, I explained to her about the current situation including ethylene glycol poisoning. I explained to her that she still had significantly elevated ethylene glycol levels and we may have to wait for the repeat levels checked. Also, once she is medically ready, I would consult [facility], considering she previously had suicide attempt history and came in with another suicide attempt. Since presentation, the patient had given different histories to different providers, as she wanted to go home. Today she states she wanted to take care of her grandparents and wanted to go home for that reason. Considering her inconsistency in the history that was provided to me, I am worried about her psychiatric health and another suicide attempt, so I decided to keep her in the hospital. She is reluctantly agreeable with the plan. In any case, if she decides to go home at nighttime, to prevent that I will get two-physician consent to keep her on hold in the hospital for suicide precautions. cc: Jacques Madrigal MD
[2020-02-09] MEDS: NS IV SCH (01:55)
[2020-02-09] MEDS: ANTIZOL IV SCH (01:55)
[2020-02-09] MEDS: LOVENOX SUBQ SCH ×2 (01:56→04:07)
[2020-02-09] MEDS: SODIUM BICARBONATE 8.4% 150 MEQ in D5W 1,000 ML IV SCH (02:55)
[2020-02-09] MEDS ORDERED: THIAMINE 100 MG in NS 50 ML IV SCH (06:00)
[2020-02-09] MEDS ORDERED: PRILOSEC PO SCH (07:00)
[2020-02-09 07:44] LABS: AGAP 10; ALB/GLOB RATIO 1.4; ALBUMIN 3.9 g/dL (3.5-5.0); ALKALINE PHOSPHATASE 62 U/L (32-104); BUN 8 mg/dL (8-22); CALCIUM 8.9 mg/dL (8.8-10.2); CHLORIDE 98 mmol/L (98-107); COSMO 268; CREATININE 0.9 mg/dL (0.5-0.9); ESTIMATED GFR > 60; GLUCOSE 94 mg/dL (70-104); GOT 96 U/L (10-30); GPT 107 U/L (10-36); SODIUM 135 mmol/L (136-145); TCO2 27 mmol/L (25-35); TOTAL BILIRUBIN 0.56 mg/dL (0.20-1.00); TOTAL PROTEIN 6.7 g/dL (6.3-8.3)
[2020-02-09] MEDS: FOLIC ACID PO SCH (08:32)
[2020-02-09] MEDS ORDERED: VITAMIN B-1 PO SCH (09:00)
[2020-02-09 11:53] VITALS: BP 151/97
[2020-02-09] MEDS ORDERED: NS IV SCH ×4 (14:00)
[2020-02-09] MEDS ORDERED: ANTIZOL IV SCH ×4 (14:00)
--- NOTE | 2020-02-09 15:17 | PROGRESS NOTE ---
DATE: 02/09/2020 INTERVAL HISTORY: No acute events overnight. SUBJECTIVE: Ms. Barahona is feeling wonderful. She denies chest pain, shortness of breath, nausea, vomiting, abdominal pain. She denies any hematuria or body ache. VITALS: Temperature 97.7 degrees, pulse 88, respiratory rate 18, blood pressure 150/90, saturating 100% on room air. PHYSICAL EXAMINATION: Not in acute distress. Oral cavity is moist. Air entry is equal bilaterally. No wheeze, rhonchi, or crackles. S1, S2 normal. No murmur, rub, or gallop. Abdomen: Soft, nontender. No lower extremity edema. She is alert and oriented x3. She denies any suicidal or homicidal ideation. She states that she uses Seroquel 100 mg at nighttime and she probably took 13 tablets before coming to the hospital but since she has been in the hospital, she has not had any suicidal or homicidal ideation. LABS: Suggestive of BUN of 8, creatinine 0.9, anion gap of 10, her sodium is 135, bicarbonate 27. Her osmolality is 284 and calculated osmolality is 276. She continues to have mild transaminitis, which is pretty much stable. Repeat ethylene glycol levels are in lab. ASSESSMENT AND PLAN: 1. Ethylene glycol poisoning by intentional ingestion. She has so far received 7 doses of intravenous fomepizole and her seventh dose would be today at 2 p.m. I had a detailed discussion about her care with Poison Control. Considering she does not have kidney dysfunction, is not acidotic, had a normal anion gap, and a closed osmolal gap, it could be reasonable to stop her treatment, so I will stop intravenous bicarbonate, fomepizole. 2. Suicide ideation with prior history of suicide ideation. I again had a detailed discussion with Ms. Barahona about seeking help whenever she has suicidal or homicidal thoughts. I will resume her home Seroquel. I am awaiting [facility] consultation. 3. Disposition. After [facility] consultation, the patient is okay to be discharged out of this hospital to [facility] versus home, depending on their recommendations . She is medically stable. Plan of care was discussed with Ms. Barahona. She was allowed to ask questions related to her medical health. I also discussed with her about getting repeat kidney function, liver function tests done within 3 to 5 days after discharge. She understood it and agrees. cc: Jacques Madrigal MD [facility]ITAL[facility]
--- NOTE | 2020-02-09 20:57 | DISCHARGE SUMMARY ---
ADMISSION DATE: 02/05/2020 DISCHARGE DATE: 02/09/2020 DISCHARGE DISPOSITION: Home. DISCHARGE CONDITION: Hemodynamically stable. Her kidney function is normal. Her osmolal gap has normalized. She does not have acidosis. She has completed 7 doses of fomepizole. She denies suicidal or homicidal ideations since hospital admission of more than 72 hours. She was recommended to go to inpatient psychiatric hospital and I offered some help from [facility] team to find her a placement. However she states that she was not suicidal and homicidal and she would call emergency room if she would have any such thoughts. She did not want to seek any inpatient psychiatric care despite repeated medical advice. DISCHARGE DIAGNOSES: 1. Ethylene glycol poisoning. 2. Anti-psychotic drug Quetiapine overdose. 3. Suicidal ideation with intentional ingestion of ethylene glycol and quetiapine. OTHER DIAGNOSES: 1. Prior history of suicide attempts. 2. History of insomnia and anxiety. 3. Morbid obesity. DISCHARGE MEDICATIONS: Quetiapine 100 mg at nighttime. VITALS: At the time of discharge temperature 97.7 degrees, pulse 88, respiratory 18, blood pressure 150/97, saturating 100% room air. PHYSICAL EXAMINATION: Morbidly obese not in any acute distress. Oral cavity was moist. Air entry bilateral equal. No wheeze, rhonchi, or crackles. S1, S2 normal. No murmur, rub or gallop. Abdomen: Soft, nontender. No lower extremity edema. She was alert, oriented x3. LABS: At the time of admission and discharge WBC 9.06, hemoglobin 13.1, platelet 205,000. Sodium 135, potassium 4, BUN 8, creatinine 0.9, on presentation her serum osmolality measured was 395, at the time of discharge it is 284. Her anion gap on presentation was 18, it was 10 at the time of discharge. Her AST is 96, ALT 107. Her lactate on presentation was 2.4. Urine toxicology had ethylene glycol levels on admission of 225 mg/dL on February 04. Repeat ethylene glycol levels drawn on February 07 has been pending however she had completed 6 doses of intravenous fomepizole. Serum plasma ethyl alcohol level on presentation was 247 which 36 hours admission was undetectable. RPR and hepatitis panel nonreactive. IMAGING: During hospital admission chest x-ray on presentation did not have an acute disease. Electrocardiogram on presentation had sinus tachycardia. HOSPITAL COURSE SUMMARY: Ms. Barahona is 29-year-old lady with history of anxiety and previous suicide attempt, came in after an attempted suicide by ingestion of antifreeze as well as Seroquel. According to emergency records, the patient drank 1 pint of alcohol, half gallon of antifreeze and about 13 tablets of Seroquel. She was documented as saying that she hated her life. She previously had required admission to [place] many years ago and had tried cutting her radial arteries in the past. The patient on arrival said that she had thrown up most of her antifreeze. She was not seeing any psychiatrist at home routinely. Her psychiatric illnesses were managed by her regular provider. In the emergency room she was found to have temperature of 98.3 degrees, pulse of 107, respiratory rate of 19, blood pressure of 109/72 and she was saturating 97% on room air. Initially she had provided inconsistent histories to different providers and wanted to go home. However, she was kept in the hospital by 2 physicians hold orders and Poison Control was consulted further management. The patient did not have acidosis on presentation and her pH was 7.38. Her bicarbonate though was 18 and her anion gap was 18. She was managed medically and was started on intravenous fomepizole, intravenous bicarbonate containing IV fluids, later on intravenous thiamine, intravenous pyridoxine, intravenous folic acid is also added to her regimen. Serum ethylene glycol levels were elevated up to 220. After medical management her condition had improved and at the time of discharge her bicarbonate had improved to normal and it was 27. Her osmolal gap had closed and her serum osmolality had decreased to 284 from 395. Poison Control was again consulted and considering patient did not have acidosis, her kidney function was normal, her osmolal gap had closed, her bicarbonate was normal, she had completed 7 doses of fomepizole, it was deemed appropriate for patient to be medically stable and discharged. [facility] was consulted at the time of discharge when patient was medically ready considering patient had suicide attempt and she had required one-to-one supervision inside the hospital. [facility] had strongly recommended inpatient psychiatric placement however they did not have any bed at that junction. I had offered patient to remain in the hospital and so that our [facility] team could help her find inpatient psychiatric care, however patient had refused to go to inpatient psychiatric care despite understanding the benefits of it. She did not have any active suicidal or homicidal ideation since more than 72 hours since presentation. She was repeatedly counseled about calling 911 or suicide help line and if she had any suicidal or homicidal thought and she agreed to it and she decided to go home so she will be discharged. She was counseled about calling her regular provider 12 hours after discharge and have a discussion about this admission as well as getting repeat kidney function and liver function tests done. She was agreed. 35 minutes were spent in discharging this patient. Plan of care was discussed in the presence of nurse at the bedside. cc: Jacques Madrigal MD MTDD
[2020-02-09] MEDS ORDERED: SEROQUEL PO SCH (21:00)
== END 2020-02-09 16:38 | disposition home or self-care (01) | DRG 918 ==
LOC: ED 22:36 → SUATTDRO 22:37 → ICU 02-06 04:17 → 3N 02-06 21:03
PROVIDERS: ATTEND Internal Medicine